=== PATIENT | male | born 1990 | race Caucasian/White ===

== ENCOUNTER 2018-09-28 17:04 | Emergency (ER) | payer OTHER ==
[2018-09-28] MEDS ORDERED: KETOROLAC TROMETHAMINE 30 MG/ML SOL IV ONE (17:23)
[2018-09-28] MEDS ORDERED: HYDROMORPHONE 1 MG/ML SYRINGE IV PRN (17:23)
[2018-09-28] MEDS ORDERED: SOLUMEDROL 125 MG/2 ML 125 MG/2 ML PDS IV ONE (17:23)
[2018-09-28 17:48] VITALS: TEMP 98.8
[2018-09-28] MEDS ORDERED: SOLUMEDROL 125 MG/2 ML 125 MG/2 ML PDS ONE (18:00)
[2018-09-28] MEDS ORDERED: KETOROLAC TROMETHAMINE 30 MG/ML SOL ONE (18:00)
[2018-09-28 18:17] LABS: CARBON DIOXIDE 27.2 mEq/L (21-32); CREATININE 0.72 mg/dl (0.80-1.30)
[2018-09-28] MEDS ORDERED: HYDROMORPHONE 1 MG/ML SYRINGE ONE (18:33)
[2018-09-28 18:41] LABS: APPEARANCE,URINE Clear; BILIRUBIN,URINE NEGATIVE (NEGATIVE); COLOR,URINE Yellow; GLUCOSE, URINE (UA) NEGATIVE (NEGATIVE); KETONES,URINE NEGATIVE (NEGATIVE); LEUKOCYTE ESTERASE ,URINE NEGATIVE (NEGATIVE); NITRATE,URINE NEGATIVE (NEGATIVE); OCCULT BLOOD,URINE NEGATIVE (NEG-TRACE); PH,URINE 7.5; UROBILINOGEN,URINE 0.2 (0.2-1.0 EU)
[2018-09-28 18:54] LABS: BACTERIA NEGATIVE (< 1+); CRYSTALS NEGATIVE (0-3 AVE/HPF); EPITHELIAL CELLS NEGATIVE (SQUAMOUS); RBC,URINE NEG (0-3AV/HPF); WBC,URINE NEG (0-5AV/HPF)
[2018-09-28] MEDS ORDERED: SODIUM CHLORIDE 0.9% FLUSH 10 ML SOL IV PRN (19:06)
[2018-09-28 19:40] VITALS: BP 156/73; PULSE 84; RESP 20; O2SAT 97
[2018-09-28 23:14] LABS: CALCIUM 8.9 mg/dl (8.5-10.1)
== END 2018-09-28 20:50 | disposition home or self-care (01) | DRG 552 ==
LOC: ED 17:04
DX: M54.41 Lumbago with sciatica, right side (principal)
CPT/HCPCS: 72131; 80048; 81001; 96374; 96375; 99283; 99284; J1885; J2930; J1170